=== PATIENT | female | born 1970 | race Caucasian/White ===

== ENCOUNTER 2018-06-11 08:05 | Day surgery (SDC) | payer OTHER | END 2018-06-11 22:38 | disposition home or self-care (01) | LOC: MOI US 08:05 | DX: N60.02 Solitary cyst of left breast (principal); N61.0 Mastitis without abscess; N63.20 Unspecified lump in the left breast, unspecified quadrant | CPT/HCPCS: 19083; 88108; 88305 ==

== ENCOUNTER 2018-06-15 18:11 | Emergency (ER) | payer OTHER ==
[~2018-06-15] VITALS: Ht 175.3 cm; Wt 104.3 kg
[2018-06-15] MEDS ORDERED: DULO30 PO (18:24)
[2018-06-15] MEDS ORDERED: PROP60 PO (18:24)
[2018-06-15] MEDS ORDERED: INVEGA TRI819 MG/2.6 IM (18:25)
[2018-06-15] MEDS ORDERED: QUET100 PO (18:25)
[2018-06-15 18:57] LABS: BASOPHILS ABSOLUTE AUTO 0.02 K/mm3 (0.00-0.23); BASOPHILS PERCENT AUTO 0 % (0-2); EOSINOPHILS ABSOLUTE AUTO 0.21 K/mm3 (0.00-0.68); EOSINOPHILS PERCENT AUTO 3 % (0-6); Hematocrit 39.4 % (33.0-51.0); Hemoglobin 13.5 g/dL (11.5-16.0); IMMATURE GRAN ABSOLUTE AUTO 0.02 K/mm3 (0.00-0.10); IMMATURE GRAN PERCENT AUTO 0 % (0-1); LYMPHOCYTES ABSOLUTE AUTO 1.11 K/mm3 (0.84-5.20); LYMPHOCYTES PERCENT AUTO 16 % (21-46); MONOCYTES ABSOLUTE AUTO 0.81 K/mm3 (0.16-1.47); MONOCYTES PERCENT AUTO 12 % (4-13); Mean Corpuscular HGB 32.9 pg (26.0-34.0); Mean Corpuscular HGB Conc 34.3 g/dL (31.5-36.5); Mean Corpuscular Volume 96 fL (80-100); Mean Platelet Volume 9.9 fL (9.1-12.4); NEUTROPHILS ABSOLUTE AUTO 4.86 K/mm3 (1.96-9.15); NEUTROPHILS PERCENT AUTO 69 % (41-73); Platelet Count 245 K/mm3 (150-400); RDW Coefficient Variation 11.3 % (11.7-14.2); RDW Standard Deviation 39.8 fL (35.1-46.3); White Blood Cell Count 7.03 K/mm3 (4.00-11.30)
[2018-06-15 19:25] LABS: Alanine Aminotransfer (ALT/SGP 26 U/L (12-78); Albumin, Blood 3.9 g/dL (3.4-5.0); Alk Phos 94 U/L (50-136); Anion Gap 7 mmol/L (6-16); Aspartate Aminotrans (AST/SGOT 13 U/L (12-37); Bilirubin, Total 0.7 mg/dL (0.1-1.0); Blood Urea Nitrogen 13 mg/dL (8-24); Bun/Creatinine Ratio 14.3 (12.0-20.0); CO2, Blood 26 mmol/L (21-32); Calcium, Blood 9.3 mg/dL (8.5-10.1); Chloride, Blood 105 mmol/L (98-108); Creatinine, Blood 0.91 mg/dL (0.40-1.00); Globulin, Blood 3.9 g/dL (2.2-4.0); Glomerular Filtration Rate >60 (60-); Glucose, Blood 99 mg/dL (70-99); Potassium, Blood 4.1 mmol/L (3.5-5.5); Sodium, Blood 138 mmol/L (136-145); Total Protein, Blood 7.8 g/dL (6.4-8.2); Troponin I <0.015 ng/mL (0.000-0.040)
[2018-06-15] MEDS ORDERED: ALBU90OI INH (20:25)
== END 2018-06-15 20:40 | disposition home or self-care (01) ==
LOC: ER 18:11
PROVIDERS: Emergency Medicine
DX: J40 Bronchitis, not specified as acute or chronic (principal); R06.00 Dyspnea, unspecified; J06.9 Acute upper respiratory infection, unspecified; Z88.1 Allergy status to other antibiotic agents; Z79.899 Other long term (current) drug therapy; F31.9 Bipolar disorder, unspecified; F17.290 Nicotine dependence, other tobacco product, uncomplicated
CPT/HCPCS: 36415; 71046; 80053; 84484; 85025; 93005; 93010; 99285-25

== ENCOUNTER 2020-08-25 10:40 | Day surgery (SDC) | payer OTHER ==
[~2020-08-25] VITALS: Ht 175.3 cm; Wt 121.9 kg
[~2020-08-25 10:40] MED LIST: ALBU90OI INH; DULO30 PO; INVEGA TRI819 MG/2.6 IM; PROP60 PO; QUET100 PO
[2020-08-25] MEDS ORDERED: NEURONTIN300 MG PO (10:57)
[2020-08-25] MEDS ORDERED: CYMBALTA30 M2 PO (10:58)
[2020-08-25] MEDS ORDERED: OMEP20ER (10:58)
[2020-08-25] MEDS ORDERED: DOXE25 PO (10:58)
[2020-08-25] MEDS ORDERED: ATORVASTATIN CA20 MG PO (10:58)
[2020-08-25] MEDS ORDERED: METFORMIN HCL500 M2 PO (10:58)
[2020-08-25] MEDS ORDERED: Prinivil10 MG PO (10:58)
[2020-08-25] MEDS ORDERED: IBU800 M1 PO (10:59)
[2020-08-25] MEDS ORDERED: Naltrexone HCl50 MG PO (11:01)
--- NOTE | 2020-08-25 12:00 | NUR ---
08/25/20 1200 BARON CRAWFORD IN TO ROOM AND PERFORMED INTRA SCALINE BLOCK. O2 AND HR MONITORED DURING PROCEDURE. O2 MAINTAINED GREATER THAN 91% ON ROOM AIR. SEE ANESTHESIA NOTE FOR BLOCK.
--- NOTE | 2020-08-25 13:46 | NUR ---
08/25/20 1346 Sneha Etienne PT ON BED VIDAL.
--- NOTE | 2020-08-25 14:08 | NUR ---
08/25/20 1408 Sneha Etienne PT DEMONSTRATED INCINITIVE SPIROMETER X4.
== END 2020-08-25 15:35 | disposition home or self-care (01) ==
LOC: ORSCSDS 10:40
PROVIDERS: Orthopaedic Surgery
PROC: 0RNJ4ZZ Release Right Shoulder Joint, Percutaneous Endoscopic Approach (ICD-10-PCS; principal; 2020-08-25 11:45)
PROC: 0RBJ4ZZ Excision of Right Shoulder Joint, Percutaneous Endoscopic Approach (ICD-10-PCS; principal; 2020-08-25 11:45)
PROC: 0LQ14ZZ Repair Right Shoulder Tendon, Percutaneous Endoscopic Approach (ICD-10-PCS; principal; 2020-08-25 11:45)
DX: M75.121 Complete rotator cuff tear or rupture of right shoulder, not specified as traumatic (principal); M75.21 Bicipital tendinitis, right shoulder; M75.41 Impingement syndrome of right shoulder; I10 Essential (primary) hypertension; E11.9 Type 2 diabetes mellitus without complications; F31.9 Bipolar disorder, unspecified; F25.9 Schizoaffective disorder, unspecified; K21.9 Gastro-esophageal reflux disease without esophagitis; E66.01 Morbid (severe) obesity due to excess calories; Z68.39 Body mass index [BMI] 39.0-39.9, adult; Z79.84 Long term (current) use of oral hypoglycemic drugs; Z79.899 Other long term (current) drug therapy
CPT/HCPCS: 71045; 82947; A9270-GY; C1713; J0171; J1100; J2001; J2250; J2405; J2704; J3010; J7120

== ENCOUNTER 2021-07-29 12:34 | Day surgery (SDC) | payer OTHER ==
[~2021-07-29] VITALS: Ht 175.3 cm; Wt 116.2 kg
[~2021-07-29 12:34] MED LIST changes: +ATORVASTATIN CA20 MG PO; +CYCL10 PO; +CYMBALTA30 M2 PO; +DOXE10 PO; +DOXE25 PO; +IBU800 M1 PO; +IBU800 MG PO; +INVEGA TRI IM; -INVEGA TRI819 MG/2.6 IM; +METFORMIN HCL500 M2 PO; +NEURONTIN300 MG PO; +Naltrexone HCl50 MG PO; +OMEP20ER; +Prinivil10 MG PO
--- NOTE | 2021-07-29 15:26 | NUR ---
PT UP TO BATHROOM. STEADY GAIT.
--- NOTE | 2021-07-29 16:16 | NUR ---
Discharge instructions reviewed with patient. Patient verbalizes understanding. Copy given to patient to take home. Discharged via wheelchair to private car for ride home.
== END 2021-07-29 16:19 | disposition home or self-care (01) ==
LOC: ORSCMMR 12:34 → ORD 14:00 → ORSCMMR 14:00
PROVIDERS: Obstetrics & Gynecology
PROC: 0UB98ZX Excision of Uterus, Via Natural or Artificial Opening Endoscopic, Diagnostic (ICD-10-PCS; principal; 2021-07-29 14:00)
DX: N84.0 Polyp of corpus uteri (principal); N95.0 Postmenopausal bleeding; I10 Essential (primary) hypertension; K21.9 Gastro-esophageal reflux disease without esophagitis; E11.9 Type 2 diabetes mellitus without complications; F31.5 Bipolar disorder, current episode depressed, severe, with psychotic features; Z79.84 Long term (current) use of oral hypoglycemic drugs; E66.9 Obesity, unspecified; Z68.37 Body mass index [BMI] 37.0-37.9, adult; Z79.899 Other long term (current) drug therapy
CPT/HCPCS: 82947; 88305; A9270; J1100; J1885; J2250; J2405; J2704; J3010; J7120

== ENCOUNTER → 2024-03-14 | Outpatient (CLI) | payer OTHER ==
[~2024-03-14] MED LIST changes: +Naltrexone HCl50 MG
== END ==
LOC: LAB SHORT 13:41 → LAB 13:41
DX: N39.0 Urinary tract infection, site not specified (principal)
CPT/HCPCS: 87077; 87086; 87186

== ENCOUNTER → 2025-03-19 | Outpatient (CLI) | payer OTHER | LOC: LAB 17:25 → LAB SHORT 17:25 | DX: N39.0 Urinary tract infection, site not specified (principal) | CPT/HCPCS: 87086 ==